=== PATIENT | female | born 1970 | race Caucasian/White ===

== ENCOUNTER 2017-01-15 17:52 | Emergency (ER) | payer SELFPAY ==
[~2017-01-15] VITALS: Ht 170.2 cm; Wt 71.3 kg
[~2017-01-15 17:52] MED LIST: Z.0.NO CURRENT MEDS
[2017-01-15 17:54] VITALS: BP 201/95; PULSE 88; RESP 17; TEMP 98.4; O2SAT 98
[2017-01-15] MEDS ORDERED: SODIUM CHLOR 0.9% 1000 ML INJ 1,000 ML IV SCH (18:19)
[2017-01-15] MEDS: SODIUM CHLOR 0.9% 1000 ML INJ 1,000 ML IV SCH ×2 (18:29→18:45)
[2017-01-15] MEDS ORDERED: SODIUM CHLORIDE 0.9% FLUSH 10 ML FLUSH IV FLUSH PRN ×2 (18:30)
[2017-01-15] MEDS ORDERED: MORPHINE SULFATE 8 MG/ML INJ IV PUSH ONE (18:30)
[2017-01-15] MEDS ORDERED: ONDANSETRON HCL 4 MG/2 ML VIAL IVP ONE ×2 (18:30)
[2017-01-15] MEDS ORDERED: MORPHINE SULFATE 4 MG/ML INJ IV PUSH ONE (18:30)
[2017-01-15 18:32] LABS: AUTOMATED NEUTROPHIL # 4.7 TH/MM3 (1.8-7.7); BASOPHIL # 0.1 TH/MM3 (0-0.2); EOSINOPHIL # 0.7 TH/MM3 (0-0.4); HEMATOCRIT 41.8 % (35.0-46.0); LYMPH % 37.3 % (9.0-44.0); LYMPHOCYTE # 3.8 TH/MM3 (1.0-4.8); MEAN CELL VOLUME 87.9 FL (80.0-100.0); MEAN CORPUSCULAR HEMOGLOBIN 29.9 PG (27.0-34.0); MONO % 8.8 % (0.0-8.0); NEUT % 45.9 % (16.0-70.0); PLATELET COUNT 277 TH/MM3 (150-450); RED BLOOD COUNT 4.76 MIL/MM3 (4.00-5.30); RED CELL DISTRIBUTION WIDTH 12.5 % (11.6-17.2); WHITE BLOOD COUNT 10.2 TH/MM3 (4.0-11.0)
[2017-01-15 18:33] LABS: HEMO FLAGS DIFF FINAL
[2017-01-15 18:34] LABS: BLOOD, URINE NEG (NEG); GLUCOSE,URINE NEG (NEG); KETONE, URINE NEG (NEG); NITRITE,URINE NEG (NEG)
[2017-01-15 18:35] LABS: METHOD OF COLLECTION CLEAN CATCH; URINE COLOR YELLOW (YELLW/STRAW)
[2017-01-15 18:38] LABS: COMMENT (UR) CULT NOT INDICATED; CULTURE IF INDICATED CULT NOT INDICATED; SQUAMOUS EPITHELIAL CELL URINE 0-5 /hpf (0-5); WBC, URINE 0-2 /hpf (0-5)
[2017-01-15 18:39] LABS: CHLORIDE 105 MEQ/L (98-107); POTASSIUM 3.9 MEQ/L (3.5-5.1); SODIUM (NA) 139 MEQ/L (136-145)
[2017-01-15 18:43] LABS: ANION GAP 10 MEQ/L (5-15); BICARBONATE 24.4 MEQ/L (21.0-32.0)
[2017-01-15 18:44] LABS: BLOOD UREA NITROGEN 24 MG/DL (7-18)
[2017-01-15 18:46] LABS: ALT (GPT) 23 U/L (10-53); AST (GOT) 23 U/L (15-37); GLOMERULAR FILTRATION RATE 62 ML/MIN (>89)
[2017-01-15 18:48] LABS: TOTAL BILIRUBIN ADULT 0.9 MG/DL (0.2-1.0)
[2017-01-15 18:49] LABS: ALKALINE PHOSPHATASE 103 U/L (45-117)
[2017-01-15] MEDS ORDERED: IOHEXOL 350 MG/ML 10 ML VIAL (for RAD DIAG) IV ONE (19:01)
--- NOTE | 2017-01-15 19:02 | RADRPT ---
EXAM DATE/TIME: 01/15/2017 18:34 [place] COMPARISON: No previous studies available for comparison. INDICATIONS : ?Abdominal pain left side for a month worse last 2 days. IV CONTRAST: 100 cc Omnipaque 350 (iohexol) IV ORAL CONTRAST: No oral contrast ingested. RADIATION DOSE: 8.59 CTDIvol (mGy) MEDICAL HISTORY : None SURGICAL HISTORY : Hand surgery for fx. ENCOUNTER: Initial ACUITY: 1 month PAIN SCALE: 10/10 LOCATION: Left middle abdomen TECHNIQUE: Volumetric scanning of the abdomen and pelvis was performed. Using automated exposure control and ad justment of the mA and/or kV according to patient size, radiation dose was kept as low as reasonably achievable to obtain optimal diagnostic quality images. DICOM format image data is available electro nically for review and comparison. FINDINGS: CT Abdomen: The liver, spleen, pancreas, kidneys, adrenals are unremarkable. There is no evidence for any appreciable pathological adenopathy, free fluid, or bowel obstruction. CT pelvis: There is no evidence for mass, abscess formation, or any significant adenopathy within the pelvis. There are scattered diverticuli mainly in the sigmoid colon without definite signs of divert iculitis. CONCLUSION: Essentially unremarkable study except for colonic diverticuli. Duglas Benitez MD on January 15, 2017 at 18:57 Board Certified Radiologist. This report was verified electronically.
[2017-01-15] MEDS ORDERED: IBUP800T23 PO (19:15)
[2017-01-15] MEDS ORDERED: CYCL1TAB29 PO (19:15)
--- NOTE | 2017-01-15 19:15 | PD ---
HPI . Abdominal pain Chief Complaint: Abdominal Pain Time Seen by Provider: 18:19 Travel History International Travel<30 days: No Contact w/Intl Traveler<30days: No Traveled to known affect area: No History of Present Illness HPI This patient presents with a chief complaint of left-sided abdominal pain which has been ongoing for more than a month. She states that she was seen at an outside hospital on about December 08 and it was musculoskeletal. They said they checked her urine and did not find any evidence of wide or infection. She states that she was subsequently discharged home. She states that she has had continuing pain since that time that the pain is very severe. It is associated with some nausea. She does not have any other associated symptoms such as fever , weight loss, anorexia, urinary tract symptoms, decreased urinary output, cough or shortness of breath. Pain is minimally saturated by movement. She reports no relieving factor. PFSH Past Medical History Medical History: Denies Significant Hx Diminished Hearing: No Influenza Vaccination: No ?: Not LMP: SCHEDULE MANAGER Social History Alcohol Use: No Tobacco Use: Yes (1 PPD) Substance Use: No Allergies-Medications (Allergen,Severity, Reaction): Coded Allergies: No Known Allergies (Verified , 01/15/17) Reported Meds & Prescriptions Reported Meds & Active Scripts Active Review of Systems Except as stated in HPI: all other systems reviewed are Neg General / Constitutional: No: Fever, Chills, Weight Loss Gastrointestinal: Positive: Nausea, Abdominal Pain, No: Vomiting, Diarrhea, Loss of Appetite Genitourinary: Positive: Flank Pain, No: Urgency, Frequency, Dysuria Physical Exam Narrative GENERAL: Patient is initially crying uncontrollably. SKIN: Warm and dry. HEAD: Atraumatic. Normocephalic. EYES: Pupils equal and round. Extraocular movements are intact. ENT: No nasal bleeding or discharge. Mucous membranes pink and moist. NECK: Trachea midline. Neck is supple. CARDIOVASCULAR: Regular rate and rhythm. Heart sounds are normal. RESPIRATORY: No accessory muscle use. Lungs are clear with good air movement throughout. GASTROINTESTINAL: Abdomen soft, non-tender, nondistended. MUSCULOSKELETAL: No obvious deformities. No edema. She does have some tenderness in the most lateral aspect of the side of her abdomen. The pain seems to be muscular. NEUROLOGICAL: Awake and alert. No obvious cranial nerve deficits. Motor grossly within normal limits. Normal speech. PSYCHIATRIC: Appropriate mood and affect; insight and judgment normal. Data Data Last Documented VS Vital Signs Date Time Temp Pulse Resp B/P Pulse Ox O2 Delivery O2 Flow Rate FiO2 01/15/17 17:54 98.4 88 17 201/95 98 Orders Complete Blood Count With Diff (01/15/17 18:19) Comprehensive Metabolic Panel (01/15/17 18:19) Lipase (01/15/17 18:19) Urinalysis - C+S If Indicated (01/15/17 18:19) Morphine Inj (Morphine Inj) (01/15/17 18:30) Ondansetron Inj (Zofran Inj) (01/15/17 18:30) Sodium Chlor 0.9% 1000 Ml Inj (Ns 1000 M (01/15/17 18:19) Sodium Chloride 0.9% Flush (Ns Flush) (01/15/17 18:30) Morphine Inj (Morphine Inj) (01/15/17 18:30) Lipase (01/15/17 18:29) Ct Abd/Pel W Iv Contrast(Rout) (01/15/17 18:29) Iv Access Insert/Monitor (01/15/17 18:29) Ondansetron Inj (Zofran Inj) (01/15/17 18:30) Sodium Chlor 0.9% 1000 Ml Inj (Ns 1000 M (01/15/17 18:29) Sodium Chloride 0.9% Flush (Ns Flush) (01/15/17 18:30) Ed Urine Pregnancytest Poc (01/15/17 18:29) Iohexol 350 Inj (Omnipaque 350 Inj) (01/15/17 19:01) Labs Laboratory Tests Test 01/15/17 18:15 White Blood Count 10.2 TH/MM3 Red Blood Count 4.76 MIL/MM3 Hemoglobin 14.2 GM/DL Hematocrit 41.8 % Mean Corpuscular Volume 87.9 FL Mean Corpuscular Hemoglobin 29.9 PG Mean Corpuscular Hemoglobin 34.0 % Concent Red Cell Distribution Width 12.5 % Platelet Count 277 TH/MM3 Mean Platelet Volume 8.5 FL Neutrophils (%) (Auto) 45.9 % Lymphocytes (%) (Auto) 37.3 % Monocytes (%) (Auto) 8.8 % Eosinophils (%) (Auto) 7.0 % Basophils (%) (Auto) 1.0 % Neutrophils # (Auto) 4.7 TH/MM3 Lymphocytes # (Auto) 3.8 TH/MM3 Monocytes # (Auto) 0.9 TH/MM3 Eosinophils # (Auto) 0.7 TH/MM3 Basophils # (Auto) 0.1 TH/MM3 CBC Comment DIFF FINAL Differential Comment Urine Collection Type CLEAN CATCH Urine Color YELLOW Urine Turbidity CLEAR Urine pH 5.0 Urine Specific [place] GREATER THAN 1.035 Urine Protein TRACE mg/dL Urine Glucose (UA) NEG mg/dL Urine Ketones NEG mg/dL Urine Occult Blood NEG Urine Nitrite NEG Urine Bilirubin NEG Urine Leukocyte Esterase NEG Urine WBC 0-2 /hpf Urine Squamous Epithelial 0-5 /hpf Cells Microscopic Urinalysis Comment CULT NOT INDICATED Sodium Level 139 MEQ/L Potassium Level 3.9 MEQ/L Chloride Level 105 MEQ/L Carbon Dioxide Level 24.4 MEQ/L Anion Gap 10 MEQ/L Blood Urea Nitrogen 24 MG/DL Creatinine 0.97 MG/DL Estimat Glomerular Filtration 62 ML/MIN Rate Random Glucose 90 MG/DL Calcium Level 9.0 MG/DL Total Bilirubin 0.9 MG/DL Aspartate Amino Transf 23 U/L (AST/SGOT) Alanine Aminotransferase 23 U/L (ALT/SGPT) Alkaline Phosphatase 103 U/L Total Protein 7.6 GM/DL Albumin 4.0 GM/DL Lipase 136 U/L [facility] Medical Decision Making Medical Screen Exam Complete: Yes Emergency Medical Condition: Yes Differential Diagnosis Differential diagnosis of flank pain includes but is not limited to kidney stone , pyelonephritis, musculoskeletal pain, PE Narrative Course This patient presents complaining with left flank/abdominal pain for over a month. The patient is very histrionic. Her abdominal exam is unremarkable. CBC & BMP Diagram 01/15/17 18:15 LFTs are normal. Lipase is normal. UA is negative. Last Impressions Abdomen/Pelvis CT 01/15/17 [id number] Signed Impressions: Service Date/Time: Sunday, January 15, 2017 18:34 - CONCLUSION: Essentially unremarkable study except for colonic diverticuli. Duglas Benitez MD The history, exam, diagnostic testing, and current condition do not suggest any significant pathology to warrant further testing, continued ED treatment, admission, or surgical evaluation at this point. The patient's condition is stable and appropriate for discharge. Diagnosis Primary Impression: Left flank pain, chronic Patient Instructions: Flank Pain (ED), General Instructions Med/Other Pt SpecificInfo: Prescription(s) given Scripts Cyclobenzaprine (Flexeril)10 Mg Tab10 Mg PO TID #30 TAB Ref 0 Prov:Ayla Velazquez MD 01/15/17 Ibuprofen 800 Mg Ome727 Mg PO Q8H PRN (Pain/Inflammation) #60 TAB Ref 0 Prov:Ayla Velazquez MD 01/15/17 Disposition: 01 DISCHARGE HOME Condition: Stable Ayla Velazquez MD Jan 15, 2017 19:15
[2017-01-15 19:30] VITALS: BP 160/92
[2017-01-15 19:40] VITALS: RESP 20
== END 2017-01-15 19:59 | disposition home or self-care (01) ==
LOC: PHED 17:52
DX: R10.9 Unspecified abdominal pain (principal)
CPT/HCPCS: 74177; 80053; 81001; 83690; 84703; 85025; 96361; 96374; 96375; 99285; J2270; J2405; J7030; Q9967